=== PATIENT | male | born 1980 | race Caucasian/White ===

== ENCOUNTER 2020-06-07 19:32 | Emergency (ER) | payer BC, OTHER ==
[2020-06-07 21:27] LABS: HEMOGLOBIN 13.3 gm/dl (14.0-17.5); RED BLOOD COUNT 4.31 M/UL (4.20-5.50); WHITE BLOOD COUNT 4.8 K/UL (4.5-11.0)
[2020-06-07 21:39] LABS: BUN/CREATININE RATIO 12 (0-10)
== END 2020-06-07 20:05 | disposition home or self-care (01) ==
LOC: ER1 19:32
PROVIDERS: Physician Assistant Medical
DX: M79.661 Pain in right lower leg (principal); U07.1 COVID-19; Z88.0 Allergy status to penicillin; Z88.1 Allergy status to other antibiotic agents; Z88.2 Allergy status to sulfonamides
CPT/HCPCS: 80053; 85025; 85610; 99283